=== PATIENT | female | born 1980 | race Caucasian/White ===

== ENCOUNTER 2018-05-20 23:07 | Emergency (ER) | payer BC ==
[~2018-05-20] VITALS: Ht 162.6 cm; Wt 80.0 kg
[2018-05-20 23:11] VITALS: BP 156/87; PULSE 96; RESP 16; TEMP 98.5; O2SAT 97
[2018-05-20] MEDS ORDERED: LISD70 (23:24)
[2018-05-20] MEDS ORDERED: VORT1TAB3 PO (23:24)
[2018-05-20] MEDS ORDERED: NEUR300C PO (23:24)
[2018-05-20] MEDS ORDERED: CLON.5 PO (23:24)
--- NOTE | 2018-05-20 23:43 | PD ---
HPI Chief Complaint: Abdominal Pain Time Seen by Provider: 23:27 Travel History International Travel<30 days: No Contact w/Intl Traveler<30days: No Traveled to known affect area: No History of Present Illness HPI 38-year-old woman presents emerged department fairly abrupt onset of lower abdominal pain about an hour or so prior to arrival. She is a little bit of left lower quadrant tenderness ongoing for the past little bit. 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 She has also had miscarriages and ectopic resulting in a right salpingectomy. Otherwise had been feeling generally well and healthy. Last menstrual period was a couple weeks ago. She is visiting from out of town. She otherwise had been feeling generally well and healthy. No other complaints. History Past Medical History Narrative Medical Ectopic , miscarriage, ovarian cyst, right-sided oophorectomy and salpingectomy Tetanus Vaccination: Unknown Influenza Vaccination: Yes LMP: 3 WEEKS AGO : 5 Para: 2 Social History Alcohol Use: Yes (rarely) Tobacco Use: No Allergies-Medications (Allergen,Severity, Reaction): Coded Allergies: No Known Allergies (Verified Allergy, Unknown, 05/20/18) Reported Meds & Prescriptions Reported Meds & Active Scripts Active Reported Vyvanse (Lisdexamfetamine Dimesylate) 70 Mg Cap 70 Mg DAILY Klonopin (Clonazepam) 0.5 Mg Tab 0.5 Mg PO BID Trintellix (Vortioxetine) 20 Mg Tab 20 Mg PO DAILY Neurontin (Gabapentin) 300 Mg Cap 300 Mg PO TID Review of Systems Except as stated in HPI: all other systems reviewed are Neg Physical Exam Narrative GENERAL: Well-appearing 38-year-old woman, no acute distress. SKIN: Focused skin assessment warm/dry. HEAD: Atraumatic. Normocephalic. EYES: Pupils equal and round. No scleral icterus. No injection or drainage. ENT: No nasal bleeding or discharge. Mucous membranes pink and moist. NECK: Trachea midline. No JVD. CARDIOVASCULAR: Regular rate and rhythm. No murmur appreciated. RESPIRATORY: No accessory muscle use. Clear to auscultation. Breath sounds equal bilaterally. GASTROINTESTINAL: Abdomen is obese and soft. Minimal left lower quadrant tenderness. No rebound or guarding. GENITOURINARY: Normal external genitalia without lesions or erythema. Vaginal vault without blood or drainage. Cervical os was closed without drainage. No cervical motion tenderness. Uterus nontender and nonenlarged. Bilateral adnexa nontender without masses. Data Data Last Documented VS Vital Signs Date Time Temp Pulse Resp B/P (MAP) Pulse Ox O2 Delivery O2 Flow Rate FiO2 05/20/18 23:11 98.5 96 16 156/87 (110) 97 Room Air Orders Orders Complete Blood Count With Diff (05/20/18 23:37) Comprehensive Metabolic Panel (05/20/18 23:37) Urinalysis - C+S If Indicated (05/20/18 23:37) Ed Urine Pregnancytest Poc (05/20/18 23:37) Iv Access Insert/Monitor (05/20/18 23:37) Ketorolac Inj (Toradol Inj) (05/20/18 23:45) Us Pelvis Comp W Doppler (05/21/18 23:37) Labs Laboratory Tests Test 05/20/18 23:43 05/20/18 23:54 White Blood Count 5.7 TH/MM3 Red Blood Count 4.28 MIL/MM3 Hemoglobin 14.2 GM/DL Hematocrit 40.4 % Mean Corpuscular Volume 94.4 FL Mean Corpuscular Hemoglobin 33.2 PG Mean Corpuscular Hemoglobin Concent 35.1 % Red Cell Distribution Width 12.5 % Platelet Count 184 TH/MM3 Mean Platelet Volume 8.3 FL Neutrophils (%) (Auto) 56.6 % Lymphocytes (%) (Auto) 34.6 % Monocytes (%) (Auto) 6.7 % Eosinophils (%) (Auto) 1.6 % Basophils (%) (Auto) 0.5 % Neutrophils # (Auto) 3.2 TH/MM3 Lymphocytes # (Auto) 2.0 TH/MM3 Monocytes # (Auto) 0.4 TH/MM3 Eosinophils # (Auto) 0.1 TH/MM3 Basophils # (Auto) 0.0 TH/MM3 CBC Comment DIFF FINAL Differential Comment Blood Urea Nitrogen 14 MG/DL Creatinine 0.74 MG/DL Random Glucose 113 MG/DL Total Protein 7.4 GM/DL Albumin 4.1 GM/DL Calcium Level 9.1 MG/DL Alkaline Phosphatase 73 U/L Aspartate Amino Transf (AST/SGOT) 19 U/L Alanine Aminotransferase (ALT/SGPT) 36 U/L Total Bilirubin 0.4 MG/DL Sodium Level 139 MEQ/L Potassium Level 3.8 MEQ/L Chloride Level 102 MEQ/L Carbon Dioxide Level 25.6 MEQ/L Anion Gap 11 MEQ/L Estimat Glomerular Filtration Rate 88 ML/MIN Urine Color YELLOW Urine Turbidity HAZY Urine pH 6.0 Urine Specific Daniel 1.015 Urine Protein NEG mg/dL Urine Glucose (UA) NEG mg/dL Urine Ketones TRACE mg/dL Urine Occult Blood MOD Urine Nitrite NEG Urine Bilirubin NEG Urine Urobilinogen LESS THAN 2 mg/dL Urine Leukocyte Esterase TRACE Urine RBC 7 /hpf Urine WBC 1 /hpf Urine Squamous Epithelial Cells 3 /hpf Urine Hyaline Casts 1 /lpf Microscopic Urinalysis Comment CULT NOT INDICATED MDM Medical Decision Making Medical Screen Exam Complete: Yes Emergency Medical Condition: Yes Interpretation(s) LABS: CBC is unremarkable. CMP is unremarkable. UA is unremarkable. Minimal hematuria. Pelvic ultrasound: Multiple small mass in the left ovary. Likely small follicles given their size. 1.3 cm echogenic mass can be a complex cyst. Uterus unremarkable. Differential Diagnosis Torsion, ruptured ovarian cyst, , infection, UTI, other Narrative Course Medical decision making 38-year-old woman presents emerged from quitting of abrupt onset lower abdominal pain, left lower quadrant tenderness, suspect ruptured ovarian cyst. History of the same check ultrasound rule out torsion. Reassess. FINAL: UA with a little bit of hematuria. I do not think she has a renal stone although we discussed this possibility. I think ruptured ovarian cyst more likely. She knows she has a history of ovarian cyst on the left. Recommend supportive treatment. Diagnosis Primary Impression: Ovarian cyst Patient Instructions: General Instructions Additional Instructions: Follow-up with your primary doctor next 2-4 days. Drink plenty fluids stay well-hydrated Use [id number] segment of and or ibuprofen as needed for pain. Return to the emergency part for any worsening abdominal pain, high fevers, or any other new or worsening symptoms. Med/Other Pt SpecificInfo: No Change to Meds Disposition: 01 DISCHARGE HOME Condition: Stable Carlos Valera MD May 20, 2018 23:43
[2018-05-20] MEDS ORDERED: KETOROLAC TROMETHAMINE 30 MG/ML (IVP) VIAL IV PUSH ONE (23:45)
[2018-05-21 00:04] LABS: AUTOMATED NEUTROPHIL # 3.2 TH/MM3 (1.8-7.7); BASOPHIL % 0.5 % (0.0-2.0); EOSINOPHIL # 0.1 TH/MM3 (0-0.4); EOSINOPHIL % 1.6 % (0.0-4.0); HEMATOCRIT 40.4 % (35.0-46.0); HEMOGLOBIN 14.2 GM/DL (11.6-15.3); LYMPH % 34.6 % (9.0-44.0); MEAN CELL VOLUME 94.4 FL (80.0-100.0); MEAN CORPUSCULAR HEMOGLOBIN 33.2 PG (27.0-34.0); MEAN CORPUSCULAR HGB CONC 35.1 % (32.0-36.0); MEAN PLATELET VOLUME 8.3 FL (7.0-11.0); MONO % 6.7 % (0.0-8.0); MONOCYTE # 0.4 TH/MM3 (0-0.9); NEUT % 56.6 % (16.0-70.0); PLATELET COUNT 184 TH/MM3 (150-450); RED BLOOD COUNT 4.28 MIL/MM3 (4.00-5.30); RED CELL DISTRIBUTION WIDTH 12.5 % (11.6-17.2); WHITE BLOOD COUNT 5.7 TH/MM3 (4.0-11.0)
[2018-05-21 00:07] LABS: ALBUMIN 4.1 GM/DL (3.4-5.0); ALT (GPT) 36 U/L (10-53); AST (GOT) 19 U/L (15-37); BICARBONATE 25.6 MEQ/L (21.0-32.0); BLOOD UREA NITROGEN 14 MG/DL (7-18); CALCIUM 9.1 MG/DL (8.5-10.1); CHLORIDE 102 MEQ/L (98-107); CREATININE 0.74 MG/DL (0.50-1.00); GLOMERULAR FILTRATION RATE 88 ML/MIN (>89); GLUCOSE,RANDOM 113 MG/DL (74-106); SODIUM (NA) 139 MEQ/L (136-145)
[2018-05-21 00:10] LABS: ALKALINE PHOSPHATASE 73 U/L (45-117); TOTAL BILIRUBIN ADULT 0.4 MG/DL (0.2-1.0); TOTAL PROTEIN 7.4 GM/DL (6.4-8.2)
[2018-05-21 00:11] LABS: BILIRUBIN, URINE NEG (NEG); BLOOD, URINE MOD (NEG); GLUCOSE,URINE NEG (NEG); HYALINE CAST, URINE 1 /lpf (RARE); KETONE, URINE TRACE mg/dL (NEG); NITRITE,URINE NEG (NEG); SQUAMOUS EPITHELIAL CELL URINE 3 /hpf (0-5); URINE COLOR YELLOW (YELLW/STRAW); URINE LEUKOCYTE ESTERASE TRACE (NEG)
--- NOTE | 2018-05-21 00:54 | RADRPT ---
EXAM DATE: 05/21/2018 12:41 AM EDT AGE/SEX: 38 years / Female INDICATIONS: Left lower quadrant pain. CLINICAL DATA: This is the patient's initial encounter. Patient reports that signs and symptoms have been present for 1 day and indicates a pain score of 7/10. MEDICAL/SURGICAL HISTORY: . History of ectopic and miscarriages. . Right salpingooop horectomy. COMPARISON: No prior exams available for comparison. MEASUREMENTS: Uterus:__8.8 x 5.9 x 4.9 cm Endometrial Stripe:__9 mm Right Ovary:__ _ Surgically absent. Left Ovary:__ 5.0 x 2.6 x 1.9 cm FINDINGS: Uterus: The uterus is normal in size. No focal masses are seen. Endometrial Stripe: The endometrial stripe displays homogeneous echotexture. Right Ovary: Surgically absent. Left Ovary: There are 2 subcentimeter cysts seen. There is also a 1.3 cm echogenic mass in the left ovary. Blood flow is seen within the left ovary. Fluid: Trace free fluid. Other: None. CONCLUSION: 1. Multiple small masses within the left ovary. The cysts likely represent follicles given their siz e. The 1.3 cm echogenic mass could be a complex cyst or a small focus of fat, such as a dermoid. This could be followed. 2. The uterus is unremarkable. 3. The patient reports being status post right salpingooophorectomy. Electronically signed by: Elver Weems MD 05/21/2018 12:53 AM EDT
== END 2018-05-21 02:49 | disposition home or self-care (01) ==
LOC: NEPE 23:07
DX: N83.202 Unspecified ovarian cyst, left side (principal); R31.9 Hematuria, unspecified; Z90.721 Acquired absence of ovaries, unilateral
CPT/HCPCS: 76856; 80053; 81001; 84703; 85025; 93975; 96374; 99284; J1885